=== PATIENT | female | born 1980 | race Caucasian/White ===

== ENCOUNTER 2020-11-09 09:15 | Emergency (ER) | payer OTHER ==
--- NOTE | 2020-11-09 11:47 | ED Physician Documentation ---
PD HPI URI - Stated complaint Stated Complaint: C+ - Chief complaint Chief Complaint: General - History obtained from History obtained from: Patient - History of Present Illness Timing - onset: How many days ago (9) Timing duration: Days (9) Timing details: Gradual onset, Still present, Waxing and waning Associated symptoms: Fever, Chills, Nasal congestion, Productive cough, Dyspnea, Other (fatigue) Contributing factors: Unimmunized Improves by: Rest, Medication Worsened by: Activity Similar symptoms before: Has not had sx before Recently seen: Not recently seen - Additional information Additional information: 40-year-old unimmunized female has developed cough congestion a tickle in her throat and postnasal drainage 9 days ago she subsequently had a test done several days later at home was positive for Covid. She had improvement in her symptoms she contacted her primary was placed on a course of Zithromax and finished that 3 days ago. She had improvement in her symptoms until last night when she developed an increase in her cough and sputum production and her cough had been mostly resolved. She is worried about the possibility of a pneumonia. She does of course have other symptoms of Covid including loss of taste and smell excessive fatigue myalgias and arthralgias. She states these symptoms of arthralgia and myalgia have improved. 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: Miscarriage(s) : None HEENT: Other Psych: None Musculoskeletal: None Derm: None - Past Surgical History Past Surgical History: Yes Derm: Skin cancer surgery - Present Medications Home Medications: Ambulatory Orders Medication Instructions Recorded Confirmed Amox/Clav 875/125 [Augmentin] 1 each PO Q12H #20 tablet 11/09/20 Budesonide [Pulmicort] 0.5 mg INH Q6HR 11/09/20 11/09/20 - Allergies Allergies/Adverse Reactions: Allergies Allergy/AdvReac Type Severity Reaction Status Date / Time No Known Drug Allergies Allergy Verified 11/09/20 09:51 - Social History Does the pt smoke?: No Smoking Status: Never smoker Does the pt drink ETOH?: Yes Does the pt have substance abuse?: No - Immunizations Immunizations are current?: No PD ED PE NORMAL - Vitals Vital signs reviewed: Yes (Hypertensive) - General General: Alert and oriented X 3, No acute distress, Well developed/nourished - HEENT HEENT: Atraumatic, PERRL, EOMI, Ears normal, Moist mucous membranes, Pharynx benign, Dentition benign - Neck Neck: Supple, no meningeal sign, No bony TTP - Cardiac Cardiac: RRR, No murmur - Respiratory Respiratory: No respiratory distress, Other (Right basilar rhonchi focal) - Abdomen Abdomen: Soft, Non tender - Back Back: No CVA TTP, No spinal TTP - Derm Derm: Normal color, Warm and dry, No rash - Extremities Extremities: No deformity, No edema - Neuro Neuro: Alert and oriented X 3, 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-12 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, No motor deficit, No sensory deficit, Normal speech Eye Opening: Spontaneous Motor: Obeys Commands Verbal: Oriented GCS Score: 15 - Psych Psych: Normal mood, Normal affect Results - Vitals Vitals: Vital Signs - 24 hr 11/09/20 11/09/20 11/09/20 09:52 10:05 11:03 Temperature 37 C Heart Rate 92 90 84 Respiratory 14 17 16 Rate Blood Pressure 149/86 H 133/64 H 120/82 H O2 Saturation 97 97 96 Oxygen O2 Source Room air - Rads (name of study) chest Radiology: EMP read indepedently, EMP read contemporaneously (Focal infiltrate to the right base) PD MEDICAL DECISION MAKING - ED course Complexity details: reviewed results, re-evaluated patient, considered differential, d/w patient ED course: 40-year-old female previously well is unimmunized against Covid she appears to have had Covid and her symptoms of Covid appear to have improved improved and she has subsequent symptoms of pneumonia her chest x-ray is consistent with a pneumonia and she is treated with Augmentin. Departure - Departure Disposition: 01 Home, Self Care Clinical Impression: COVID-19 Pneumonia Qualifiers: Pneumonia type: due to unspecified organism Laterality: right Lung location: lower lobe of lung Qualified Code(s): J18.9 - Pneumonia, unspecified organism Condition: Stable Instructions: ED Pneumonia Adult, Flu and Cold: Nutrition, Prevention and Treatment Tips Follow-Up: ELPIDIO Hart [Provider Group] Prescriptions: Amox/Clav 875/125 [Augmentin] 1 each PO Q12H #20 tablet
[2020-11-09 12:02] VITALS: BP 133/83
--- NOTE | 2020-11-09 12:54 | XRAY Report ---
PROCEDURE: Chest 1 View X-Ray INDICATIONS: URI TECHNIQUE: One view of the chest was acquired. COMPARISON: None FINDINGS: Surgical changes and devices: None. Lungs and pleura: Right basilar atelectasis and or infiltrate Mediastinum: Mediastinal contours appear normal. Heart size is normal. Bones and chest wall: No suspicious bony lesions. Overlying soft tissues appear unremarkable. IMPRESSION: Right basilar atelectasis and or infiltrate Reviewed by: Carlos Mueller MD on 11/09/2020 11:53 AM MAGDI Approved by: Carlos Mueller MD on 11/09/2020 11:53 AM AKDT Station ID: [id number]
== END 2020-11-09 12:03 | disposition home or self-care (01) ==
LOC: ED 09:15
DX: U07.1 COVID-19 (principal); J12.82 Pneumonia due to coronavirus disease 2019
CPT/HCPCS: 99283; 99284